=== PATIENT | female | born 1995 | race Caucasian/White ===

== ENCOUNTER 2019-10-19 13:20 | Emergency (ER) | payer BC, SELFPAY ==
[2019-10-19] MEDS ORDERED: Ondansetron PF 4 MG/2 ML Vial ONE (13:57)
[2019-10-19] MEDS ORDERED: Ketorolac Tromethamine 30 MG/ML VIAL ONE (13:57)
[2019-10-19 14:17] LABS: #Basophils 0.1 thou/uL (0.0-0.2); #Eosinphils 0.1 thou/uL (0.0-0.7); #Lymphocytes 1.9 thou/uL (1.20-3.40); #Monocytes 0.7 thou/uL (0.11-0.59); #Neutrophils 5.9 thou/uL (1.40-6.50); %Basophils 0.6 % (0.0-1.0); %Eosinophils 1.3 % (0.0-10.0); %Lymphocytes 21.6 % (21.0-51.0); %Monocytes 8.2 % (0.0-10.0); %Neutrophils 68.3 % (42.0-75.0); Hemoglobin 13.7 g/dL (12.0-16.0); Mean Corpuscular HGB CONC 33.7 g/dL (32.0-36.0); Mean Corpuscular Hemoglobin 33.1 pg (27.0-31.0); Mean Corpuscular Volume 98.2 fL (78.0-98.0); Mean Platelet Volume 7.5 fL (7.4-10.4); Platelet Count 323 thou/uL (130-400); RBC Distribution Width 11.2 % (11.5-14.5); Red Blood Cell (RBC) Count 4.14 mill/uL (4.20-5.40); White Blood Cell (WBC) Count 8.6 thou/uL (4.8-10.8)
[2019-10-19 14:24] LABS: BHCG - Serum Negative (NEGATIVE); Pregs Control Background? CLEAR/WHITE (CLR/WHITE); Pregs Control Bar Appear? YES (CONTROL BAR)
[2019-10-19 14:37] LABS: Bilirubin Negative (Negative); Blood, Urine 2+ (Negative); Clarity Clear (Clear); Glucose, Urine (Dipstick) Normal (Negative); Leukocyte 75 Leu/uL (Negative); Nitrite Negative (Negative); Protein, Urine (Dipstick) 20 mg/dL (Neg-Trace); RBC/HPF 0-3 HPF (0-3); Squamous Epithelial 0-3 HPF (0-3); Urobilinogen Normal mg/dL (Less than 2)
[2019-10-19 14:39] LABS: ALT (SGPT) 9 U/L (8-55); AST (SGOT) 11 U/L (5-34); Alkaline Phosphatase 52 U/L (40-110); Anion Gap 11 mmol/L (10-20); BUN (Urea Nitrogen) 6 mg/dL (7.0-18.7); Bilirubin, Total 0.3 mg/dL (0.2-1.2); Calc. Creatinine Clearance 0 mL/min (70-130); Calcium 9.4 mg/dL (7.8-10.44); Carbon Dioxide 22 mmol/L (22-29); Chloride 110 mmol/L (98-107); Estimated GFR-MDRD Greater than 90; Globulin 3.2 g/dL (2.4-3.5); Glucose 95 mg/dL (70-105); Protein, Total 7.2 g/dL (6.0-8.3); Sodium 139 mmol/L (136-145)
[2019-10-19 14:39] LABS: Bacteria/HPF 1+ HPF (None Seen)
--- NOTE | 2019-10-19 15:20 | CT ---
CT ABDOMEN AND PELVIS WITHOUT CONTRAST: 10/19/19 HISTORY: 24-year-old female with right sided flank pain. FINDINGS: Absence of oral and IV contrast reduces the sensitivity of the exam particularly for the evaluation o f solid organs and bowel. FINDINGS: No free air or free fluid is seen in the abdomen or pelvis. The lung bases are clear. No calcified ga llstones are noted. No calculi is seen in the kidneys, ureters or the urinary bladder. The small olga l loops are not abnormally dilated. Uterus is present. Appendix is normal. No acute abscess or nodule s seen. IMPRESSION: No CT evidence of urinary tract calculi/obstruction or appendicitis. POS: [facility]
== END 2019-10-19 15:56 | disposition home or self-care (01) ==
LOC: ERS 13:20
DX: R10.9 Unspecified abdominal pain (principal); F31.9 Bipolar disorder, unspecified; Z79.899 Other long term (current) drug therapy
CPT/HCPCS: 74176; 80053; 81003; 81015; 84703; 85025; 96374; 96375; J1885; J2405